=== PATIENT | female | born 1990 | race Caucasian/White ===

== ENCOUNTER 2020-05-13 17:08 | Emergency (ER) | payer OTHER ==
[~2020-05-13] VITALS: Ht 162.6 cm; Wt 70.3 kg
[2020-05-13] MEDS ORDERED: CLONAZEPAM 0.50.5 M1 PO (17:22)
[2020-05-13] MEDS ORDERED: LEXAPRO20 MG PO (17:22)
[2020-05-13 17:51] LABS: ABSOLUTE LYMPHOCYTES 2.5 thou/uL (0.8-5.3); ABSOLUTE MONOCYTES 0.4 thou/uL (0.0-1.2); BASOPHILS 0.5 %; HEMATOCRIT 42.2 % (37.0-47.0); HEMOGLOBIN 14.6 gm/dL (12.0-15.0); LYMPHOCYTES 35.8 %; MCH 31.9 pg (26.0-34.0); MCHC 34.6 g/dL (28.0-37.0); MCV 92.4 fL (80.0-100.0); MONOCYTES 5.6 %; NUCLEATED RBCS 0 /100WBC; PLATELET COUNT* 278 thou/uL (150-400); POLYS 58.1 %; RBC 4.57 mil/uL (4.20-5.00); WBC 6.9 thou/uL (4.0-11.0)
[2020-05-13 17:56] LABS: CALCIUM 8.8 mg/dL (8.5-10.1); CREATININE 0.6 mg/dL (0.6-1.3); POTASSIUM 4.2 mmol/L (3.5-5.1)
[2020-05-13 18:02] LABS: ALBUMIN 3.8 g/dL (3.4-5.0); TOTAL BILIRUBIN 0.9 mg/dL (<0.1-1.0); TOTAL PROTEIN 7.6 g/dL (6.4-8.2)
[2020-05-13 18:02] LABS: URINE BILIRUBIN NEGATIVE (Negative); URINE BLOOD NEGATIVE (Negative); URINE CLARITY CLEAR; URINE COLOR YELLOW; URINE GLUCOSE-RANDOM NEGATIVE (Negative); URINE KETONES NEGATIVE (Negative); URINE LEUKOCYTES-REFLEX NEGATIVE (Negative); URINE NITRITE-REFLEX NEGATIVE (Negative); URINE PROTEIN NEGATIVE (Negative); URINE SPECIFIC GRAVITY 1.025 (1.005-1.030)
[2020-05-13] MEDS ORDERED: NORCO 5-325 TA1 EAC2 PO ×2 (19:08→19:30)
[2020-05-13] MEDS ORDERED: FLOMAX0.4 MG PO ×2 (19:08→19:30)
[2020-05-13] MEDS ORDERED: ONDANSETRON ODT4 MG PO ×2 (19:08→19:30)
[2020-05-13 20:00] VITALS: BP 122/68
--- NOTE | 2020-05-14 10:31 | EKG ---
[place] [address] ELECTROCARDIOGRAM REPORT Name: RUDY GERBER Room: [facility]#: [id number] Admission: 05/13/20 Attend Phys: Discharge: 05/13/20 Date of : 89 Date of Service: 05/13/201758 Report #: [id number] THIS REPORT FOR: //name// [facility] ED Test Date: 2020-05-13 Test Time: 17:59:22 Pat Name: RUDY GERBER Department: Room: Gender: [employer] Vehicle [employer]: [facility] : 1990 Requested By: Branden Lopez Order Number: [id number] Sonia MD: Sean Varela Measurements Intervals [place] Rate: 72 P: 31 [place]: 166 QRS: 40 QRSD: 99 T: 33 QT: 388 QTc: 425 Interpretive Statements Sinus rhythm No previous ECG available for comparison Electronically Signed On 05-14-2020 10:31:18 CDT by Sean Varela [email or web address] <ELECTRONICALLY SIGNED> By: Sean Varela MD, [facility] 05/14/20 1031 1759 1759 Sean Varela MD, FACC /EPI
== END 2020-05-13 20:05 | disposition home or self-care (01) ==
LOC: M.ERS 17:08
PROVIDERS: Physician Assistant
DX: N20.1 Calculus of ureter (principal); R11.2 Nausea with vomiting, unspecified; F32.9 Major depressive disorder, single episode, unspecified; F41.9 Anxiety disorder, unspecified; Z90.710 Acquired absence of both cervix and uterus